=== PATIENT | female | born 1960 | race Caucasian/White ===

== ENCOUNTER → 2018-07-08 09:58 | Outpatient (CLI) | payer OTHER | END | disposition home or self-care (01) | LOC: D.RAD 09:58 | DX: K21.9 Gastro-esophageal reflux disease without esophagitis (principal) ==

== ENCOUNTER 2018-10-18 09:45 | Outpatient (CLI) | payer OTHER | END 2018-10-18 11:25 | disposition home or self-care (01) | LOC: D.OPS 09:45 | PROVIDERS: ATTEND Surgery | DX: K21.0 Gastro-esophageal reflux disease with esophagitis (principal); Z01.812 Encounter for preprocedural laboratory examination ==

== ENCOUNTER 2018-11-09 08:15 | Inpatient (IN) | payer OTHER ==
[~2018-11-09 08:15] MED LIST: HYDROCHLOROTH12.5 M1 PO; HYDROCODON-ACE1 EA10 PO; LIDODERM 5 %1 PATCH TRANSDERM; LOMOTIL 2.5-0.1 EAC1 PO; NEURONTIN 300300 MG PO; PROPRANOLOL HCL20 MG PO; SOMA350 MG PO; VALIUM10 MG PO
[2018-11-09 08:40] LABS: HEMATOCRIT 36.7 % (36.0-48.0); HEMOGLOBIN 12.4 g/dL (12-16); MCHC 33.8 g/dL (31.0-37.0); MCV 97.6 fL (80.0-100.0); MEAN PLATELET VOLUME 10.8 fL (7.4-10.4); RBC 3.76 10x6/uL (4.00-5.40); RDW 12.8 % (11.5-14.5); WBC 8.6 10x3/uL (4.8-10.8)
[2018-11-09 08:55] LABS: CALC OSMOLALITY 279 mosm/kg (275-300); CALCIUM 9.1 mg/dL (8.5-10.1); CARBON DIOXIDE 34.5 mmol/L (21.0-32.0); CHLORIDE - SERUM 99 mmol/L (98-107); CREATININE - SERUM 0.8 mg/dL (0.6-1.3); GLUCOSE 99 mg/dL (74-106); POTASSIUM - SERUM 3.4 mmol/L (3.5-5.1); SODIUM 139 mmol/L (136-145); UREA NITROGEN 18 mg/dL (7-18); eGFR NON AFRICAN AMERICAN 78 mL/min (90-120)
[2018-11-09 09:45] VITALS: BP 104/66; BMI 26.1
[2018-11-09 18:14] VITALS: BMI 26.1
[2018-11-09 20:00] VITALS: BP 119/82
[2018-11-10] VITALS (8 sets, daily range): BP systolic 94–150; BP diastolic 54–82; BMI 26.0
[2018-11-10 04:01] LABS: BASOPHILS 0.1 % (0-2); EOSINOPHILS 0.3 % (0-7); HEMATOCRIT 34.2 % (36.0-48.0); HEMOGLOBIN 11.4 g/dL (12-16); IMMATURE GRANULOCYTES 0.2 % (0-5); LYMPHOCYTES 19.8 % (15-50); MCH 32.5 pg (26.0-34.0); MCHC 33.3 g/dL (31.0-37.0); MCV 97.4 fL (80.0-100.0); MEAN PLATELET VOLUME 10.6 fL (7.4-10.4); MONOCYTES 9.8 % (2-11); NEUTROPHILS 69.8 % (40-80); PLATELET COUNT 225 10x3/uL (130-400); RBC 3.51 10x6/uL (4.00-5.40); RDW 12.5 % (11.5-14.5); WBC 10.7 10x3/uL (4.8-10.8)
[2018-11-10 04:27] LABS: ALBUMIN 3.1 g/dL (3.4-5.0); ALKALINE PHOSPHATASE 69 U/L (46-116); ALT (SGPT) 24 U/L (10-68); BILIRUBIN - TOTAL 0.55 mg/dL (0.2-1.3); CALC OSMOLALITY 277 mosm/kg (275-300); CALCIUM 8.3 mg/dL (8.5-10.1); CARBON DIOXIDE 30.7 mmol/L (21.0-32.0); CHLORIDE - SERUM 101 mmol/L (98-107); CREATININE - SERUM 0.8 mg/dL (0.6-1.3); GLUCOSE 109 mg/dL (74-106); POTASSIUM - SERUM 3.5 mmol/L (3.5-5.1); PROTEIN - SERUM 6.2 g/dL (6.4-8.2); SODIUM 139 mmol/L (136-145); eGFR NON AFRICAN AMERICAN 78 mL/min (90-120)
[2018-11-10 04:31] LABS: UREA NITROGEN 11 mg/dL (7-18)
[2018-11-11 01:01] VITALS: BP 104/58
[2018-11-11 05:19] VITALS: BP 155/79
[2018-11-11 08:43] VITALS: BP 121/68
[2018-11-11 08:45] LABS: HEMOGLOBIN 10.9 g/dL (12-16); LYMPHOCYTES 12.4 % (15-50); MCH 34.3 pg (26.0-34.0); MCHC 35.2 g/dL (31.0-37.0); MCV 97.5 fL (80.0-100.0); MEAN PLATELET VOLUME 10.5 fL (7.4-10.4); PLATELET COUNT 201 10x3/uL (130-400); RBC 3.18 10x6/uL (4.00-5.40); RDW 11.8 % (11.5-14.5); WBC 10.6 10x3/uL (4.8-10.8)
[2018-11-11 08:51] LABS: CALC OSMOLALITY 279 mosm/kg (275-300); CALCIUM 8.6 mg/dL (8.5-10.1); CARBON DIOXIDE 31.9 mmol/L (21.0-32.0); CHLORIDE - SERUM 103 mmol/L (98-107); CREATININE - SERUM 0.7 mg/dL (0.6-1.3); GLUCOSE 112 mg/dL (74-106); POTASSIUM - SERUM 3.3 mmol/L (3.5-5.1); SODIUM 141 mmol/L (136-145); eGFR NON AFRICAN AMERICAN > 90 mL/min (90-120)
[2018-11-11 08:53] LABS: UREA NITROGEN 7 mg/dL (7-18)
[2018-11-11 13:31] VITALS: BP 137/74
[2018-11-11 15:59] VITALS: BP 138/76
[2018-11-11 20:00] VITALS: BP 116/77
[2018-11-12] VITALS: BP 149/77
[2018-11-12 03:00] VITALS: BP 140/69
[2018-11-12 05:01] LABS: BASOPHILS 0.1 % (0-2); EOSINOPHILS 4.5 % (0-7); HEMATOCRIT 30.1 % (36.0-48.0); HEMOGLOBIN 10.1 g/dL (12-16); IMMATURE GRANULOCYTES 0.4 % (0-5); LYMPHOCYTES 15.9 % (15-50); MCH 32.6 pg (26.0-34.0); MCHC 33.6 g/dL (31.0-37.0); MCV 97.1 fL (80.0-100.0); MEAN PLATELET VOLUME 10.4 fL (7.4-10.4); MONOCYTES 13.7 % (2-11); NEUTROPHILS 65.4 % (40-80); PLATELET COUNT 187 10x3/uL (130-400); RDW 12.3 % (11.5-14.5); WBC 8.2 10x3/uL (4.8-10.8)
[2018-11-12 05:16] LABS: CALC OSMOLALITY 280 mosm/kg (275-300); CARBON DIOXIDE 33.6 mmol/L (21.0-32.0); CHLORIDE - SERUM 103 mmol/L (98-107); CREATININE - SERUM 0.7 mg/dL (0.6-1.3); GLUCOSE 126 mg/dL (74-106); MAGNESIUM - SERUM 1.7 mg/dL (1.8-2.4); POTASSIUM - SERUM 3.3 mmol/L (3.5-5.1); SODIUM 141 mmol/L (136-145); UREA NITROGEN 7 mg/dL (7-18); eGFR NON AFRICAN AMERICAN > 90 mL/min (90-120)
[2018-11-12 08:43] VITALS: BP 127/63
[2018-11-12 13:50] VITALS: BP 115/61
[2018-11-12 17:55] VITALS: BP 138/74
[2018-11-12 20:00] VITALS: BP 119/68
[2018-11-13] VITALS: BP 117/49
[2018-11-13 03:00] VITALS: BP 110/53
[2018-11-13 05:36] LABS: BASOPHILS 0.4 % (0-2); EOSINOPHILS 7.2 % (0-7); HEMATOCRIT 29.9 % (36.0-48.0); IMMATURE GRANULOCYTES 0.2 % (0-5); LYMPHOCYTES 26.6 % (15-50); MCH 32.4 pg (26.0-34.0); MCHC 33.4 g/dL (31.0-37.0); MCV 96.8 fL (80.0-100.0); MEAN PLATELET VOLUME 10.6 fL (7.4-10.4); NEUTROPHILS 50.6 % (40-80); PLATELET COUNT 202 10x3/uL (130-400); RBC 3.09 10x6/uL (4.00-5.40); RDW 12.4 % (11.5-14.5)
[2018-11-13 05:37] LABS: WBC 5.1 10x3/uL (4.8-10.8)
[2018-11-13 05:52] LABS: CALC OSMOLALITY 288 mosm/kg (275-300); CALCIUM 8.7 mg/dL (8.5-10.1); CARBON DIOXIDE 32.7 mmol/L (21.0-32.0); CHLORIDE - SERUM 107 mmol/L (98-107); CREATININE - SERUM 0.6 mg/dL (0.6-1.3); GLUCOSE 95 mg/dL (74-106); MAGNESIUM - SERUM 1.6 mg/dL (1.8-2.4); POTASSIUM - SERUM 3.8 mmol/L (3.5-5.1); SODIUM 146 mmol/L (136-145); UREA NITROGEN 7 mg/dL (7-18); eGFR NON AFRICAN AMERICAN > 90 mL/min (90-120)
[2018-11-13 05:53] LABS: PHOSPHOROUS 3.9 mg/dL (2.5-4.9)
[2018-11-13 09:08] VITALS: BP 130/62
[2018-11-13 12:18] VITALS: BP 108/50
[2018-11-13 17:06] VITALS: BP 153/72
[2018-11-13 18:30] LABS: BASOPHILS 0.4 % (0-2); EOSINOPHILS 6.5 % (0-7); HEMATOCRIT 29.2 % (36.0-48.0); HEMOGLOBIN 9.8 g/dL (12-16); IMMATURE GRANULOCYTES 0.2 % (0-5); LYMPHOCYTES 27.3 % (15-50); MCH 32.3 pg (26.0-34.0); MCHC 33.6 g/dL (31.0-37.0); MCV 96.4 fL (80.0-100.0); MEAN PLATELET VOLUME 10.4 fL (7.4-10.4); MONOCYTES 12.9 % (2-11); NEUTROPHILS 52.7 % (40-80); PLATELET COUNT 215 10x3/uL (130-400); RBC 3.03 10x6/uL (4.00-5.40); RDW 12.3 % (11.5-14.5); WBC 5.7 10x3/uL (4.8-10.8)
[2018-11-13 18:41] LABS: APTT 31.3 SECONDS (22.8-39.4); INR 1.09 (0.85-1.17); PROTIME 13.6 SECONDS (11.6-15.0)
[2018-11-13 20:00] VITALS: BP 119/60
[2018-11-14] VITALS (12 sets, daily range): BP systolic 103–144; BP diastolic 51–70
[2018-11-14 04:35] LABS: BASOPHILS 0.3 % (0-2); EOSINOPHILS 6.5 % (0-7); HEMATOCRIT 29.7 % (36.0-48.0); IMMATURE GRANULOCYTES 0.2 % (0-5); LYMPHOCYTES 20.8 % (15-50); MCH 32.4 pg (26.0-34.0); MCHC 33.7 g/dL (31.0-37.0); MCV 96.1 fL (80.0-100.0); MEAN PLATELET VOLUME 10.2 fL (7.4-10.4); MONOCYTES 10.4 % (2-11); NEUTROPHILS 61.8 % (40-80); PLATELET COUNT 226 10x3/uL (130-400); RBC 3.09 10x6/uL (4.00-5.40); RDW 12.4 % (11.5-14.5); WBC 6.2 10x3/uL (4.8-10.8)
[2018-11-14 04:44] LABS: CALC OSMOLALITY 279 mosm/kg (275-300); CALCIUM 8.6 mg/dL (8.5-10.1); CARBON DIOXIDE 30.7 mmol/L (21.0-32.0); CHLORIDE - SERUM 103 mmol/L (98-107); CREATININE - SERUM 0.7 mg/dL (0.6-1.3); GLUCOSE 114 mg/dL (74-106); POTASSIUM - SERUM 3.5 mmol/L (3.5-5.1); SODIUM 141 mmol/L (136-145); UREA NITROGEN 7 mg/dL (7-18); eGFR NON AFRICAN AMERICAN > 90 mL/min (90-120)
[2018-11-15 05:36] LABS: BASOPHILS 0.3 % (0-2); EOSINOPHILS 5.1 % (0-7); HEMATOCRIT 30.8 % (36.0-48.0); HEMOGLOBIN 10.2 g/dL (12-16); IMMATURE GRANULOCYTES 0.1 % (0-5); MCH 32.1 pg (26.0-34.0); MCHC 33.1 g/dL (31.0-37.0); MCV 96.9 fL (80.0-100.0); MEAN PLATELET VOLUME 10.5 fL (7.4-10.4); MONOCYTES 12.3 % (2-11); NEUTROPHILS 60.2 % (40-80); PLATELET COUNT 230 10x3/uL (130-400); RBC 3.18 10x6/uL (4.00-5.40); RDW 12.5 % (11.5-14.5); WBC 7.5 10x3/uL (4.8-10.8)
[2018-11-15 05:37] VITALS: BP 104/61
[2018-11-15 05:50] LABS: CALC OSMOLALITY 284 mosm/kg (275-300); CALCIUM 8.7 mg/dL (8.5-10.1); CARBON DIOXIDE 30.8 mmol/L (21.0-32.0); CHLORIDE - SERUM 105 mmol/L (98-107); CREATININE - SERUM 0.8 mg/dL (0.6-1.3); GLUCOSE 95 mg/dL (74-106); POTASSIUM - SERUM 3.5 mmol/L (3.5-5.1); SODIUM 144 mmol/L (136-145); UREA NITROGEN 7 mg/dL (7-18); eGFR NON AFRICAN AMERICAN 78 mL/min (90-120)
[2018-11-15 08:57] VITALS: BP 124/69
[2018-11-15 17:21] VITALS: BP 157/63
[2018-11-15 17:38] VITALS: BP 115/59
[2018-11-15 21:06] LABS: ACID FAST SMEAR Negative (()); AFB SPECIMEN PROCESSING Concentration (())
[2018-11-15 22:01] VITALS: BP 134/74
[2018-11-16 05:09] VITALS: BP 128/64
[2018-11-16 05:17] LABS: BASOPHILS 0.1 % (0-2); EOSINOPHILS 5.9 % (0-7); HEMATOCRIT 30.7 % (36.0-48.0); HEMOGLOBIN 10.2 g/dL (12-16); IMMATURE GRANULOCYTES 0.1 % (0-5); LYMPHOCYTES 23.9 % (15-50); MCH 32.1 pg (26.0-34.0); MCHC 33.2 g/dL (31.0-37.0); MCV 96.5 fL (80.0-100.0); MEAN PLATELET VOLUME 10.4 fL (7.4-10.4); MONOCYTES 11.5 % (2-11); NEUTROPHILS 58.5 % (40-80); PLATELET COUNT 240 10x3/uL (130-400); RBC 3.18 10x6/uL (4.00-5.40); RDW 12.4 % (11.5-14.5)
[2018-11-16 05:34] LABS: CALC OSMOLALITY 283 mosm/kg (275-300); CALCIUM 8.8 mg/dL (8.5-10.1); CARBON DIOXIDE 30.7 mmol/L (21.0-32.0); CHLORIDE - SERUM 107 mmol/L (98-107); CREATININE - SERUM 0.7 mg/dL (0.6-1.3); GLUCOSE 101 mg/dL (74-106); POTASSIUM - SERUM 3.2 mmol/L (3.5-5.1); SODIUM 144 mmol/L (136-145); eGFR NON AFRICAN AMERICAN > 90 mL/min (90-120)
[2018-11-16 06:06] LABS: UREA NITROGEN 5 mg/dL (7-18)
[2018-11-16 09:23] VITALS: BP 118/60
--- NOTE | 2018-11-16 12:24 | MORECARE ---
CASE MANAGEMENT DISCHARGE SUMMARY PATIENT: RACHAEL RAPP UNIT: [id number] ADM DATE: 11/09/18 AGE: 58 : 62 SEX: F ROOM/BED: D.2210 AUTHOR: TANVIR REEVES PHYSICIAN: REFERRING PHYSICIAN: JACI SULTANA MD DATE OF SERVICE: 11/16/18 Discharge Plan Patient Name: RACHAEL RAPP [facility] : 1960 Planned Disposition: Anticipated Discharge Date: Discharge Date: Expected LOS: Initial Reviewer: [email or web address] Initial Review Date: 11/10/2018 Generated: 11/16/18 1:24 pm Patient Name: RACHAEL RAPP Page [id number] at 1224 All edits/amendments must be made on the electronic document DICTATION DATE: 11/16/18 122 BOILER T[employer]ERS SUPERVISOR: SEKOU 11/16/18 1223 RPT#: [id number] DC DATE: STATUS: ADM IN [facility] [address] [place] [address] END OF REPORT
--- NOTE | 2018-11-16 12:33 | MORECARE ---
CASE MANAGEMENT DISCHARGE SUMMARY PATIENT: RACHAEL RAPP UNIT: [id number] ADM DATE: 11/09/18 AGE: 58 : 62 SEX: F ROOM/BED: D.2210 AUTHOR: TANVIR REEVSE PHYSICIAN: REFERRING PHYSICIAN: JACI SULTANA MD DATE OF SERVICE: 11/16/18 Discharge Plan Patient Name: [facility]ACHAEL RAPP [facility] [facility] 1960 Planned Disposition: Anticipated Discharge Date: Discharge Date: Expected LOS: Initial Reviewer: [email or web address] Initial Review Date: 11/10/2018 Generated: 11/16/18 1:33 pm Comments DCP- Discharge Planning Updated by [email or web address]: Bita Lomax on 11/16/18 11:[address] WALK TEST COMPLETED, DOES NOT QUALIFY FOR HOME O2. POX 94 % RESTING ON ROOM AIR 96% O2 SAT DURING EXERTION. PER RT Last DP export: 11/16/18 11:24 a Patient Name: RACHAEL RAPP Page [id number] at 1233 All edits/amendments must be made on the electronic document DICTATION DATE: 11/16/18 123 FILM PRODUCER: SEKOU 11/16/18 123 RPT#: [id number] DC DATE: STATUS: ADM IN [facility] [address] [place] [address] END OF REPORT
[2018-11-16 13:13] LABS: FUNGUS STAIN Final report (())
[2018-11-16 14:17] VITALS: BP 158/64
[2018-11-16] MEDS ORDERED: OXYCODONE HCL5 M1 PO (15:22)
[2018-11-16] MEDS ORDERED: ALBUTEROL SULF8.5 GM INH (15:22)
[2018-11-16] MEDS ORDERED: AUGMENTIN 875-11 TAB PO (15:22)
--- NOTE | 2018-11-16 16:44 | MORECARE ---
CASE MANAGEMENT DISCHARGE SUMMARY PATIENT: RACHAEL RAPP UNIT: [id number] ADM DATE: 11/09/18 AGE: 58 : 62 SEX: F ROOM/BED: D.2210 AUTHOR: TANVIR REEVES PHYSICIAN: REFERRING PHYSICIAN: JACI SULTANA MD DATE OF SERVICE: 11/16/18 Discharge Plan Patient Name: RACHAEL RAPP Facility: [facility]:[place] : 1960 Planned Disposition: Anticipated Discharge Date: Discharge Date: Expected LOS: Initial Reviewer: [email or web address] Initial Review Date: 11/10/2018 Generated: 11/16/18 5:44 pm Comments DCP- Discharge Planning Updated by [email or web address]: Bita Lomax on 11/16/18 3:[address] CM met with patient to assess discharge planning needs. She is independent at home and lives by herself. Her daughter in law will be picking her up today. She feels like it is a safe discharge. She does not use any equipment at home and denies any needs from a CM stand point DCP- Discharge Planning Updated by [email or web address]: Bita Lomax on 11/16/18 11:[address] WALK TEST COMPLETED, DOES NOT QUALIFY FOR HOME O2. POX 94 % RESTING ON ROOM AIR 96% O2 SAT DURING EXERTION. PER RT Last DP export: 11/16/18 11:33 a Patient Name: RACHAEL RAPP Page [id number] at 1644 All edits/amendments must be made on the electronic document DICTATION DATE: 11/16/181642 TOWER WATCHMAN: SEKOU 11/16/181642 RPT#: [id number] DC DATE: STATUS: ADM IN [facility] [address] [place] [id number] END OF REPORT
--- NOTE | 2018-11-17 16:27 | MORECARE ---
CASE MANAGEMENT DISCHARGE SUMMARY PATIENT: RACHAEL RAPP UNIT: [id number] ADM DATE: 11/09/18 AGE: 58 : 62 SEX: F ROOM/BED: D.2210 AUTHOR: TANVIR REEVES PHYSICIAN: REFERRING PHYSICIAN: JACI SULTANA MD DATE OF SERVICE: 11/17/18 Discharge Plan Patient Name: RACHAEL RAPP Facility: [facility]:[place] : 1960 Planned Disposition: Anticipated Discharge Date: Discharge Date: 11/16/2018 Expected LOS: Initial Reviewer: [email or web address] Initial Review Date: 11/10/2018 Generated: 11/17/18 5:27 pm Comments DCP- Discharge Planning Updated by [email or web address]: Bita Lomax on 11/16/18 3:[address] CM met with patient to assess discharge planning needs. She is independent at home and lives by herself. Her daughter in law will be picking her up today. She feels like it is a safe discharge. She does not use any equipment at home and denies any needs from a CM stand point DCP- Discharge Planning Updated by [email or web address]: Bita Lomax on 11/16/18 11:[address] WALK TEST COMPLETED, DOES NOT QUALIFY FOR HOME O2. POX 94 % RESTING ON ROOM AIR 96% O2 SAT DURING EXERTION. PER RT Last DP export: 11/16/18 3:44 p Patient Name: RACHAEL RAPP Page [id number] at 1627 All edits/amendments must be made on the electronic document DICTATION DATE: 11/17/181625 REAL TIME ANALYST: DM 11/17/181625 RPT#: [id number] DC DATE:11/16/18 STATUS: DIS IN [facility] [address] [place] [address] END OF REPORT
[2018-11-21 15:10] LABS: FUNGUS CULTURE RESULT 1 Candida dubliniensis (()); FUNGUS MYCOLOGY CULTURE Preliminary report (())
== END 2018-11-16 19:25 | disposition home or self-care (01) | DRG 326 ==
LOC: D.OPS 08:15 → D.MS 13:43
PROVIDERS: Anesthesiology; Internal Medicine Pulmonary Disease; ADMIT Surgery
PROC: 0BQT4ZZ Repair Diaphragm, Percutaneous Endoscopic Approach (ICD-10-PCS; 2018-11-09)
PROC: 0DV44ZZ Restriction of Esophagogastric Junction, Percutaneous Endoscopic Approach (ICD-10-PCS; principal; 2018-11-09 10:30)
PROC: 0B9M8ZX Drainage of Bilateral Lungs, Via Natural or Artificial Opening Endoscopic, Diagnostic (ICD-10-PCS; 2018-11-14)
PROC: 0BDK8ZX Extraction of Right Lung, Via Natural or Artificial Opening Endoscopic, Diagnostic (ICD-10-PCS; 2018-11-14)
DX: K44.9 Diaphragmatic hernia without obstruction or gangrene (principal); J69.0 Pneumonitis due to inhalation of food and vomit; K21.9 Gastro-esophageal reflux disease without esophagitis; M79.7 Fibromyalgia; I10 Essential (primary) hypertension; L40.9 Psoriasis, unspecified; M19.90 Unspecified osteoarthritis, unspecified site; D64.9 Anemia, unspecified; E87.6 Hypokalemia